=== PATIENT | male | born 1960 | race Caucasian/White ===

== ENCOUNTER 2020-07-19 09:22 | Emergency (ER) | payer SELFPAY ==
[~2020-07-19] VITALS: Ht 175.3 cm; Wt 86.6 kg
[2020-07-19 10:01] VITALS: BP_SYST 128
--- NOTE | 2020-07-19 10:06 | NUR ---
Patient triaged and placed in waiting room. VSS and patient appears in no acute distress at this time. Awaiting available bed, and MD notified of need for MSE.
--- NOTE | 2020-07-19 10:15 | NUR ---
Patient presented to ER C/O right shoulder pain. Patient ambulatory to ER, A&Ox4, afebrile, skin pink & warm, pain 12/19/ Patient state he has right shoulder pain x2 weeks, denies trauma or innjury.
--- NOTE | 2020-07-19 10:33 | NUR ---
Patient to [facility] for evaluation. Side rails up. Report given to SANKET Dickinson.
[2020-07-19] MEDS ORDERED: traMADol HCL HCL 50 MG TABLET (ULTRAM) PO ONE (11:00)
--- NOTE | 2020-07-19 11:03 | NUR ---
Patient transported to radiology , accompanied by staff.
[2020-07-19 11:43] VITALS: BP_SYST 124
--- NOTE | 2020-07-19 11:43 | NUR ---
Patient given written and verbal discharge instructions and verbalizes understanding. ER MD discussed with patient the results and treatment provided. Patient in stable condition. ID arm band removed. Rx of naproxen,tramadol given. Patient educated on pain management and to follow up with PMD. Pain Scale 0/10. Opportunity for questions provided and answered. Medication side effect fact sheet provided.
== END 2020-07-19 11:43 | disposition home or self-care (01) ==
LOC: SED 09:22
DX: M75.101 Unspecified rotator cuff tear or rupture of right shoulder, not specified as traumatic (principal); Z87.442 Personal history of urinary calculi
CPT/HCPCS: 72072-TC; 99283

== ENCOUNTER 2021-10-30 19:35 | Emergency (ER) | payer OTHER ==
[~2021-10-30] VITALS: Ht 175.3 cm; Wt 79.4 kg
[2021-10-30 20:21] VITALS: BP_SYST 130
--- NOTE | 2021-10-30 20:28 | NUR ---
Patient triaged and placed in waiting room. VSS and patient appears in no acute distress at this time. Accompanied by self, awaiting available bed, and MD notified of need for MSE.
[2021-10-30 21:25] LABS: BASOPHILS % (AUTO) 0.2 % (0.0-2.0); EOSINOPHILS # (AUTO) 0.3 K/uL (0.0-0.4); EOSINOPHILS % (AUTO) 3.8 % (0.0-4.0); HEMATOCRIT 48.6 % (36-54); HEMOGLOBIN 16.6 g/dL (14.0-18.0); LYMPHOCYTES # (AUTO) 0.9 K/uL (1.0-5.5); LYMPHOCYTES % (AUTO) 12.3 % (20.5-51.5); MEAN CORPUSCULAR HEMOGLOBIN 29 pg (27-31); MEAN CORPUSCULAR HGB CONC 34 % (32-36); MEAN CORPUSCULAR VOLUME 86 fL (79.0-98.0); MONOCYTES # (AUTO) 1.3 K/uL (0.0-1.0); MONOCYTES % (AUTO) 17.7 % (1.7-9.3); NEUTROPHILS # (AUTO) 4.9 K/uL (1.8-7.7); PLATELET COUNT (AUTO) 255 K/uL (130-430); RED BLOOD CELL COUNT(AUTO) 5.68 MIL/uL (4.2-6.2); RED CELL DISTRIBUTION WIDTH 13.4 % (9.0-15.0); WHITE BLOOD COUNT (AUTO) 7.4 K/uL (4.8-10.8)
[2021-10-30 21:32] LABS: CALCIUM 9.7 mg/dL (8.4-11.0); CREATININE 1.09 mg/dL (0.55-1.30); POTASSIUM 3.8 mmol/L (3.5-5.1)
[2021-10-30 21:38] LABS: ALBUMIN 3.7 g/dL (3.4-4.8); TOTAL BILIRUBIN 0.7 mg/dL (0.0-1.0)
--- NOTE | 2021-10-30 23:43 | NUR ---
patient called for bed placement. patient not in waiting room
== END 2021-10-30 23:43 | disposition left against medical advice (07) ==
LOC: SED 19:35
DX: R10.9 Unspecified abdominal pain (principal); Z53.21 Procedure and treatment not carried out due to patient leaving prior to being seen by health care provider
CPT/HCPCS: 36415; 80053; 83690; 85025

== ENCOUNTER 2022-07-24 16:59 | Emergency (ER) | payer OTHER ==
[~2022-07-24] VITALS: Ht 172.7 cm; Wt 79.4 kg
[2022-07-24 17:48] VITALS: BP_SYST 113
[2022-07-24 20:31] LABS: HEMATOCRIT 47.4 % (36-54); HEMOGLOBIN 16.2 g/dL (14.0-18.0); MEAN CORPUSCULAR HEMOGLOBIN 30 pg (27-31); MEAN CORPUSCULAR HGB CONC 34 % (32-36); MEAN CORPUSCULAR VOLUME 87 fL (79.0-98.0); PLATELET COUNT (AUTO) 284 K/uL (130-430); RED BLOOD CELL COUNT(AUTO) 5.44 MIL/uL (4.2-6.2); RED CELL DISTRIBUTION WIDTH 13.2 % (9.0-15.0)
[2022-07-24 20:53] LABS: CALCIUM 9.2 mg/dL (8.4-11.0); CREATININE 1.12 mg/dL (0.55-1.30)
[2022-07-24 20:59] LABS: ALBUMIN 3.3 g/dL (3.4-4.8); TOTAL BILIRUBIN 0.6 mg/dL (0.0-1.0)
--- NOTE | 2022-07-24 20:59 | NUR ---
Patient to ER bed 07 to gown for evaluation. Side rails up. Report given to Jenna COLES .
[2022-07-24] MEDS ORDERED: levoFLOXacin 500 MG TABLET PO ONE (21:00)
[2022-07-24] MEDS ORDERED: KETOROLAC TROMETHAMINE 60 MG/2 ML VIAL IM ONE (21:00)
[2022-07-24] MEDS ORDERED: SULFAMETHOXAZOLE/TRIMETHOPR DS 1 TABLET PO ONE (21:00)
[2022-07-24 21:02] LABS: ATYPICAL LYMPHOCYTES % 10 % (0-0); BAND % (MANUAL) 4 % (0-6); BASOPHILS % (MANUAL) 0 % (0-2); EOSINOPHILS % (MANUAL) 0 % (0-7); LYMPHOCYTES % (MANUAL) 31 % (20-46); MONOCYTES % (MANUAL) 8 % (0-11)
--- NOTE | 2022-07-24 21:10 | NUR ---
Patient presents to ED from home with c/o lower abd pain with diarrhea x 4 days. Patient reports pain 8/10 at this time. Patient afebrile and denies any other s/s at this time. Patient A/Ox4, VSS, ambulatory, resp even and unlabored. Nad noted at this time.
--- NOTE | 2022-07-24 22:00 | NUR ---
LALITHA Harris at bedside.
[2022-07-24] MEDS ORDERED: LEVO-62 PO (22:20)
[2022-07-24] MEDS ORDERED: METR-154 PO (22:20)
[2022-07-24] MEDS ORDERED: ONDA-8 TL (22:20)
[2022-07-24] MEDS ORDERED: IBUP-1971 PO (22:20)
[2022-07-24 22:30] VITALS: BP_SYST 113
--- NOTE | 2022-07-24 22:30 | NUR ---
Patient given written and verbal discharge instructions and verbalizes understanding. ER MD discussed with patient the results and treatment provided. Patient in stable condition. ID arm band removed. Rx of Ibuprofen, Levofloxacin, metronidazole, and Zofran given. Patient educated on pain management and to follow up with PMD. Pain Scale 3/10. Opportunity for questions provided and answered. Medication side effect fact sheet provided. Patient A/Ox4, VSS, ambulatory, resp even and unlabored. Nad noted at this time. Patient in stable condition upon discharge.
== END 2022-07-24 22:30 | disposition home or self-care (01) ==
LOC: SED 16:59
DX: K57.92 Diverticulitis of intestine, part unspecified, without perforation or abscess without bleeding (principal); R10.32 Left lower quadrant pain; Z79.899 Other long term (current) drug therapy; Z20.822 Contact with and (suspected) exposure to COVID-19
CPT/HCPCS: 99284; 74176; 87426; 85027; 80053; 83690; 85007; 36415; 76376; 96372; 87804 ×2; J1885